=== PATIENT | male | born 1960 | race Hispanic/Latino ===

== ENCOUNTER 2018-05-16 13:56 | Emergency (ER) | payer OTHER ==
[2018-05-16 14:06] VITALS: BP 151/78
--- NOTE | 2018-05-16 16:18 | Cat Scan Report ---
FINAL REPORT EXAM: CT HEAD/BRAIN WO CON HISTORY: headache, recent brain contusion TECHNIQUE: CT of the Head without IV contrast. PRIORS: None currently available. FINDINGS: There is no evidence for acute ischemia. There is no hemorrhage. There is no midline shift. There is no hydrocephalus. There is no mass. Age appropriate cooley-white matter attenuation is noted. There is no calvarial fracture. The temporal bones demonstrate aerated mastoid air cells. The middle ears appear unremarkable. 3.5 mm retention cysts or mucosal thickening in the right maxillary sinus. Mild mucosal thickening both ethmoid sinuses. Globes are intact. IMPRESSION: No acute intracranial findings.
--- NOTE | 2018-05-16 16:54 | Emergency Department Report ---
ED General Adult HPI - General Chief complaint: Dizziness Stated complaint: REQUESTING BRAIN SCAN/LOS OF SPEECH/DIZZ Time Seen by Provider: 05/16/18 15:20 Source: patient Mode of arrival: Ambulatory Limitations: No Limitations - History of Present Illness Initial comments: Patient is a 58-year-old male who approximately 6 months ago slipped and fell and hit his head and had a brain bleed. This sounded more like a concomitant injury from what the patient is describing. Patient states that he' s had some off and on dizziness since then as well as occasional headaches. Patient states for the last month he's had some problems where when she gets upset or excited he'll start to get certain words. Patient also states he's had some increased dizziness over the last month. Patient mentioned this to his neurologist in [place] and was told he needed to go immediately to the ER to get a "brain scan". 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 Patient states they're intermittent and only happen when he is upset or excited about something. Patient denies any other focal neurological deficit. - Related Data Allergies Allergy/AdvReac Type Severity Reaction Status Date / Time No Known Allergies Allergy Unverified 05/16/18 14:00 ED Review of Systems ROS: Stated complaint: REQUESTING BRAIN SCAN/LOS OF SPEECH/DIZZ Other details as noted in HPI Comment: All other systems reviewed and negative ED Past Medical Hx - Past Medical History Previous Medical History?: Yes Hx Hypertension: Yes Hx Diabetes: Yes Additional medical history: head injury - Surgical History Past Surgical History?: Yes Additional Surgical History: Grant Carpel tunnel surgery - Social History Smoking Status: Never Smoker Substance Use Type: Alcohol, Prescribed ED Physical Exam - General Limitations: No Limitations General appearance: alert, in no apparent distress - Head Head exam: Present: atraumatic, normocephalic - Eye Eye exam: Present: normal appearance - ENT ENT exam: Present: mucous membranes moist - Neck Neck exam: Present: normal inspection - Respiratory Respiratory exam: Present: normal lung sounds bilaterally. Absent: respiratory distress - Cardiovascular Cardiovascular Exam: Present: regular rate, normal rhythm. Absent: systolic murmur, diastolic murmur, rubs, gallop - GI/Abdominal GI/Abdominal exam: Present: soft, normal bowel sounds - Rectal Rectal exam: Present: deferred - Extremities Exam Extremities exam: Present: normal inspection - Back Exam Back exam: Present: normal inspection - Neurological Exam Neurological exam: Present: alert, oriented X3, CN II-XII intact, normal gait, reflexes normal. Absent: motor sensory deficit - Psychiatric Psychiatric exam: Present: normal affect, normal mood - Skin Skin exam: Present: warm, dry, intact, normal color. Absent: rash ED Course Vital Signs 05/16/18 14:00 Temperature 97.9 F Pulse Rate 85 Respiratory 18 Rate Blood Pressure 151/78 O2 Sat by Pulse 98 Oximetry ED Medical Decision Making - Medical Decision Making Patient's CT of the head was read by the radiologist as having an impression of no acute intracranial findings. Patient will have a copy of h CT scans report given to the patient's that he can take it to his neurologist with the patient again has no new focal neurological deficits his only issue is that he gets excited he feels as though he does forget certain words and stuttering patient will be discharged home. Is Critical care attestation.: If time is entered above; I have spent that time in minutes in the direct care of this critically ill patient, excluding procedure time. ED Disposition Clinical Impression: Speech impediment Disposition: DC-01 TO HOME OR SELFCARE Is pt being admited?: No Does the pt Need Aspirin: No Condition: Stable Referrals: PRIMARY CARE, [Primary Care Provider] - 3-5 Days
== END 2018-05-16 17:08 | disposition home or self-care (01) ==
LOC: ED 13:56
DX: R47.89 Other speech disturbances (principal); I10 Essential (primary) hypertension; E11.9 Type 2 diabetes mellitus without complications
CPT/HCPCS: 70450